=== PATIENT | male | born 1975 | race Hispanic/Latino ===

== ENCOUNTER → 2022-04-07 | Outpatient (CLI) | payer OTHER ==
[~2022-04-07] MED LIST: ASPI-556 PO; CLOP-31 PO; LISI20TA24 PO; SIMV-43 PO
== END | disposition home or self-care (01) ==
LOC: RAH 15:32
PROVIDERS: ATTEND Internal Medicine
DX: I11.9 Hypertensive heart disease without heart failure (principal); R10.9 Unspecified abdominal pain; E78.5 Hyperlipidemia, unspecified; I25.10 Atherosclerotic heart disease of native coronary artery without angina pectoris; E11.69 Type 2 diabetes mellitus with other specified complication
CPT/HCPCS: 74176